=== PATIENT | female | born 1970 | race Caucasian/White ===

== ENCOUNTER → 2016-10-31 | Outpatient (CLI) | payer MEDICARE, MEDICAID ==
--- NOTE | 2016-10-31 09:45 | EKG REPORT ---
SEVERITY:- ABNORMAL ECG - SINUS RHYTHM NONSPECIFIC INTRAVENTRICULAR CONDUCTION DELAY : Confirmed by: Christine Warren 31-Oct-2016 09:45:07
== END ==
LOC: OD 08:36
PROVIDERS: ATTEND Student in an Organized Health Care Education/Training Program
DX: Z79.891 Long term (current) use of opiate analgesic (principal)
CPT/HCPCS: 93005; 93010

== ENCOUNTER 2016-11-20 02:35 | Emergency (ER) | payer MEDICARE, MEDICAID ==
--- NOTE | 2016-11-20 03:12 | ER Document Report ---
ED General - General Chief Complaint: Back Pain Stated Complaint: BACK PAIN Time Seen by Provider: 11/20/16 02:59 Notes: Patient is a 46-year-old female presents with complaint of pain in her back. She has a history of chronic back pain. She is to be on pain management but was recently weaned off her methadone. She says she is currently tween pain management doctors. She says that her pain started up again after she helped her family member move. She says since then she has had pain in both her lower and upper back. She says that she just feels weak all over and hurts into her extremities as well. No loss of bowel control. No urinary retention. She did go to [facility] yesterday was placed on prednisone. She says the prednisone is not helping. She is also on Cymbalta for pain. She also takes Neurontin for pain she also takes Phenergan as well as clonidine. She has no other complaints at this time. No recent fevers or illness. No travel outside the country. No recent flu vaccination. TRAVEL OUTSIDE OF THE [place] IN LAST 30 DAYS: No - Related Data Allergies/Adverse Reactions: Penicillins Adverse Reaction (Verified 11/20/16 02:37) pregabalin [From Lyrica] Adverse Reaction (Verified 11/20/16 02:37) Past Medical History - Social History Smoking Status: Unknown if Ever Smoked Frequency of alcohol use: None Drug Abuse: None Family History: Reviewed & Not Pertinent Patient has suicidal ideation: No Patient has homicidal ideation: No - Past Medical History Cardiac Medical History: Denies: Hx Coronary Artery Disease, Hx Heart Attack, Hx Hypertension Pulmonary Medical History: Denies: Hx Asthma, Hx Bronchitis, Hx COPD, Hx Pneumonia Neurological Medical History: Denies: Hx Cerebrovascular Accident, Hx Seizures Renal/ Medical History: Denies: Hx Peritoneal Dialysis Musculoskeltal Medical History: Denies Hx Arthritis - Immunizations Hx Diphtheria, Pertussis, Tetanus Vaccination: Yes Review of Systems - Review of Systems Notes: My Normal Review Basic REVIEW OF SYSTEMS: CONSTITUTIONAL : Denies fever, chills, or sweats. Denies recent illness. RESPIRATORY: Denies cough, cold, or chest congestion. Denies shortness of breath, difficulty breathing, or wheezing. GASTROINTESTINAL: Denies abdominal pain. Denies nausea, vomiting, or diarrhea. Denies constipation. Last BM: GENITOURINARY: Denies difficulty urinating, painful urination, burning, frequency, or blood in urine. MUSCULOSKELETAL: Back pain SKIN: Denies rash or skin lesions. NEUROLOGICAL: Denies altered mental status or loss of consciousness. Denies headache. Denies weakness or paralysis or loss of use of either side. Denies problems with gait or speech. Denies sensory or motor loss. ALL OTHER SYSTEMS REVIEWED AND NEGATIVE. Physical Exam - Vital signs Vitals: Temp Pulse Resp BP Pulse Ox 97.5 F 108 H 18 134/82 H 98 11/20/16 02:39 11/20/16 02:39 11/20/16 02:39 11/20/16 02:39 11/20/16 02:39 - Notes Notes: General Appearance: Well nourished, alert, cooperative, no acute distress, no obvious discomfort. Vitals: reviewed, See vital signs table. Eyes: PERRL, EOMI, Conjuctiva clear Neck: Supple, no neck tenderness, Back: Pain to palpation over thoracic and lumbar paraspinal musculature that is worse on the right. Extremities: strength 5/5 in all extremities, good pulses in all extremities, good strength with plantar and dorsal flexion of both feet against resistance. 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 She is able stand and bear weight without difficulty. No foot drop with ambulation. Skin: warm, dry, appropriate color, no rash Neuro: speech clear, oriented x 3, normal affect, responds appropriately to questions. Distal sensation intact. Course - Re-evaluation Re-evalutation: 11/20/16 07:06 Patient will be discharged home. She is already on max therapy for opiate withdrawal. Suspect that her back pain is worsening being that she was recently weaned off her methadone and also was recently doing heavy lifting. She has no new trauma to her back. She has no signs of central spinal cord impingement. On physical exam she has good strength in all 4 extremities despite her saying that she feels weak. I encourage her to follow-up closely with her primary care doctor. Encouraged to return to ER if she has loss of bowel control, urinary retention, foot drop, difficulty in bleeding, or increasing weakness in her extremities. Patient agrees with plan and will be discharged home. Dictation of this chart was performed using voice recognition software; therefore, there may be some unintended grammatical errors. - Vital Signs Vital signs: Temp Pulse Resp BP Pulse Ox 97.5 F 92 12 116/70 97 11/20/16 02:39 11/20/16 03:45 11/20/16 03:45 11/20/16 03:45 11/20/16 03:45 Discharge - Discharge Clinical Impression: Back pain Qualifiers: Back pain location: back pain in unspecified location Chronicity: chronic Back pain laterality: bilateral Qualified Code(s): M54.9 - Dorsalgia, unspecified Condition: Good Disposition: HOME, SELF-CARE Additional Instructions: Please follow up with your doctor for further pain management. Please continue to take the Phenergan, Clonidine, and Neurontin and your other prescribed medications. Please return to the ER immediately if you have worsening of your symptoms, loss of bowel control, urinary retention, or fevers. Referrals: ISAURO CAI MD [Primary Care Provider] - 11/21/16
[2016-11-20 06:11] VITALS: BP 116/70
== END 2016-11-20 03:37 | disposition home or self-care (01) ==
LOC: ER 02:35
DX: M54.9 Dorsalgia, unspecified (principal); G89.29 Other chronic pain; Z88.0 Allergy status to penicillin
CPT/HCPCS: 99283

== ENCOUNTER 2017-01-17 06:52 | Day surgery (SDC) | payer MEDICARE, MEDICAID ==
[2017-01-10 09:26] LABS: ABSOLUTE BASOPHILS # (AUTO) 0.1 10^3/uL (0.0-0.2); ABSOLUTE EOSINOPHILS # (AUTO) 0.2 10^3/uL (0.0-0.6); ABSOLUTE LYMPHOCYTES (AUTO) 3.7 10^3/uL (0.5-4.7); ABSOLUTE MONOCYTES (AUTO) 0.6 10^3/uL (0.1-1.4); ABSOLUTE NEUT (AUTO) 7.5 10^3/uL (1.7-8.2); BASOPHILS % (AUTO) 0.5 % (0-2); EOSINOPHILS % (AUTO) 1.4 % (0-6); HEMATOCRIT 40.6 % (36.0-47.0); HEMOGLOBIN 14.3 g/dL (12.0-15.5); HGB HCT DIFFERENCE 2.3; LYMPHOCYTES % (AUTO) 30.9 % (13-45); MEAN CORPUSCULAR HEMOGLOBIN 31.5 pg (27.0-33.4); MEAN CORPUSCULAR HGB CONC 35.3 g/dL (32.0-36.0); MEAN CORPUSCULAR VOLUME 89 fl (80-97); MONOCYTES % (AUTO) 5.2 % (3-13); RED BLOOD COUNT 4.55 10^6/uL (3.72-5.28); RED CELL DISTRIBUTION WIDTH 15.1 % (11.5-14.0); WHITE BLOOD COUNT 12.1 10^3/uL (4.0-10.5)
[2017-01-10 09:30] LABS: APPEARANCE,URINE CLEAR; BILIRUBIN,URINE NEGATIVE (NEGATIVE); GLUCOSE, URINE NEGATIVE (NEGATIVE); KETONES,URINE NEGATIVE (NEGATIVE); LEUKOCYTE ESTERASE,URINE NEGATIVE (NEGATIVE); NITRITE,URINE NEGATIVE (NEGATIVE); PROTEIN,URINE NEGATIVE (NEGATIVE); URINE SPECIFIC GRAVITY 1.005; UROBILINOGEN,URINE NEGATIVE mg/dL (<2.0)
[2017-01-10 09:55] LABS: ANION GAP 18 (5-19); BLOOD UREA NITROGEN 11 mg/dL (7-20); CALCIUM 10.9 mg/dL (8.4-10.2); CARBON DIOXIDE 30 mmol/L (22-30); CHLORIDE 96 mmol/L (98-107); CREATININE RESULT 0.59 mg/dL (0.52-1.25); GLUCOSE 154 mg/dL (75-110); POTASSIUM 4.3 mmol/L (3.6-5.0); SODIUM 143.7 mmol/L (137-145)
--- NOTE | 2017-01-10 10:41 | RADIOLOGY REPORT (SQ) ---
EXAM DESCRIPTION: CHEST PA/LATERAL COMPLETED DATE/TIME: 01/10/2017 9:58 am REASON FOR STUDY: PRE-OP COMPARISON: 08/20/2013 two-view chest EXAM PARAMETERS: NUMBER OF VIEWS: two views TECHNIQUE: Digital Frontal and Lateral radiographic views of the chest acquired. RADIATION DOSE: NA LIMITATIONS: none FINDINGS: LUNGS AND PLEURA: No opacities, masses or pneumothorax. No pleural effusion. MEDIASTINUM AND HILAR STRUCTURES: No masses or contour abnormalities. HEART AND VASCULAR STRUCTURES: Heart normal size. No evidence for failure. BONES: No acute findings. HARDWARE: None in the chest. OTHER: No other significant finding. IMPRESSION: NO SIGNIFICANT RADIOGRAPHIC FINDING IN THE CHEST. TECHNICAL DOCUMENTATION: JOB ID: [id number] [employer]- All Rights Reserved
--- NOTE | 2017-01-10 13:22 | EKG REPORT ---
SEVERITY:- ABNORMAL ECG - SINUS RHYTHM NONSPECIFIC INTRAVENTRICULAR CONDUCTION DELAY : Confirmed by: Pooja Elias MD 10-Jan-2017 13:22:04
[~2017-01-17 06:52] MED LIST: CLINDAMYCIN 600 MG/D5W RTU 600 MG/50 ML RTUPB IV PRN
[2017-01-17] MEDS ORDERED: BUPIVACAINE HCL 0.5 % INJ/PF 30 ML SDV ONE ×2 (07:39→09:33)
[2017-01-17 08:37] LABS: POTASSIUM 4.4 mmol/L (3.6-5.0)
[2017-01-17] MEDS ORDERED: DEXAMETHASONE SOD PHOSPHATE INJ 4 MG/1 ML VIAL ONE (08:58)
[2017-01-17] MEDS ORDERED: MIDAZOLAM 2 MG/2 ML INJ ONE (08:58)
[2017-01-17] MEDS ORDERED: ONDANSETRON HCL INJ/PF 4 MG/2 ML SDV ONE (08:58)
[2017-01-17] MEDS ORDERED: LIDOCAINE 2% INJ-PF (20 MG/ML) 10 ML AMPUL ONE (08:58)
[2017-01-17] MEDS ORDERED: FENTANYL CITRATE INJ/PF 250 MCG/5 ML AMPULE ONE (08:58)
[2017-01-17] MEDS ORDERED: PROPOFOL INJ 200 MG/20 ML VIAL IV ONE (08:59)
[2017-01-17] MEDS ORDERED: ACETAMINOPHEN 100 ML IV ONE (08:59)
[2017-01-17] MEDS ORDERED: MORPHINE SULFATE 10 MG/ML INJ IV PRN (09:53)
[2017-01-17] MEDS ORDERED: OXYCODONE-ACETAMINOPHEN 5-325 MG TABLET PO PRN ×3 (09:53→10:52)
[2017-01-17] MEDS ORDERED: FENTANYL CITRATE INJ/PF 100 MCG/2 ML AMPUL IV PRN ×3 (09:53)
[2017-01-17] MEDS ORDERED: PROMETHAZINE HCL INJ 25 MG/1 ML VIAL IV PRN ×2 (09:53)
[2017-01-17] MEDS ORDERED: ONDANSETRON HCL INJ/PF 4 MG/2 ML SDV IV PRN ×2 (09:53→10:52)
[2017-01-17] MEDS ORDERED: DIPHENHYDRAMINE HCL 50 MG/ML VIAL IV PRN (09:53)
[2017-01-17] MEDS ORDERED: MEPERIDINE HCL/PF INJ 25 MG/1 ML DISP.SYRIN IV PRN (09:53)
--- NOTE | 2017-01-17 10:45 | PDOC DISCHARGE SUMMARY ---
Discharge Summary (SDC) - Discharge Final Diagnosis: RIGHT cubital tunnel syndrome Date of Surgery: 01/17/17 Discharge Date: 01/17/17 Condition: Good Treatment or Instructions: Schedule Follow Up w/ Dr. Nicolas King @ [facility] to be seen in 10-14 days or as scheduled [place]: [place]: [place]: Ice and elevate Keep splint clean/dry/intact. If your fingers become numb please unwrap the Miguel Ángel wrap but leave the splint in place, if the sensation does not return within 30 minutes please return to the emergency department. May begin finger range of motion attempting to make full fist. Please use ibuprofen (Motrin or Advil) 600-800 mg every 8 hours as needed for pain or fever. You may also use acetaminophen (Tylenol) 1000 mg every 4-6 hours as needed for pain or fever. Please be aware that many medications contain acetaminophen, do not exceed a total of 1000 mg of acetaminophen every 6 hours. If ibuprofen and acetaminophen are not sufficient for your pain you may take the Percocet. Please be aware that the Percocet does contain Tylenol. Stool softener of choice when on pain medication. Prescriptions: Oxycodone HCl/Acetaminophen [Percocet 7.5-325 mg Tablet] 1 - 2 tab PO ASDIR PRN #45 tab PRN Reason: Referrals: ISAURO CAI MD [Primary Care Provider] - Discharge Diet: As Tolerated Respiratory Treatments at Home: Deep Breathing/Coughing, Incentive Spirometer Discharge Activity: No Lifting Over 10 Pounds, No Lifting/Push/Pulling Report the Following to Your Physician Immediately: Fever over 101 Degrees, Unusual Bleeding, Redness, Swelling, Warmth, Increased Soreness
--- NOTE | 2017-01-17 10:51 | Operative Report ---
Operative Report DATE OF SURGERY: 01/17/17 PREOPERATIVE DIAGNOSIS: Right cubital tunnel syndrome POSTOPERATIVE DIAGNOSIS: Same OPERATION: Right cubital tunnel release with ulnar nerve transposition SURGEON: ROXANA MURILLO ANESTHESIA: GA COMPLICATIONS: None ESTIMATED BLOOD LOSS: Minimal PROCEDURE: Indication for above procedure: 46-year-old female presents my office with numbness and tingling in her right upper extremity with notable weakness throughout the ulnar nerve distribution including clawing. On examination patient had findings of severe cubital tunnel syndrome. At that point we discussed treatment options including operative versus nonoperative intervention and prognosis for nerve recovery. After discussing these risks and benefits the joint decision was made to proceed with operative treatment. Procedure In Detail: Patient was seen and evaluated in the preoperative holding area. The RIGHT upper extremity was initialized and marked. Patient received 2g of Ancef IV for bacterial prophylaxis. Patient was taken back to the operative room where transferred to the operative table and placed under general anesthesia. Once they were adequately anesthetized and a nonsterile tourniquet was placed on the upper extremity. A surgical team debriefing was performed ensuring all instrumentation was available, the surgical procedure was discussed with possible concerns reviewed. The upper extremity was prepped with chlorhexidine and alcohol and draped in a sterile fashion. A timeout was done identifying correct patient, procedure and extremity everyone in attendance agree with this and verbalized no concerns. The extremity was exsanguinated the tourniquet was inflated to 250 mmHg. A longitudinal skin incision was made centered over the cubital tunnel. Careful dissection was done through the overlying soft tissues any peripheral vasculature was carefully coagulated with bipolar cautery. The branches of the medial antebrachial cutaneous nerve were identified and protected throughout the entirety of the case. Once within the confines of the cubital tunnel the ulnar nerve was identified at the proximal aspect of the wound. At this level I carefully released a medial portion of the triceps and the medial intermuscular septum freeing the ulnar nerve proximally of any overlying soft tissue compression. I then continued to track the ulnar nerve distally releasing Ann's fascia. Within the cubital tunnel there is a small and anconeus epitrochlearis muscle which was excised. At the level of the FCU aponeurosis between the 2 heads of the FCU muscle. The fascia was released once again relieving any external compression from the ulnar nerve distally past the level of the first motor branch. I then freed up the nerve posteriorly ensuring there is no remaining soft tissue bands causing compression. During dissection of the nerve careful attention was directed at avoiding disruption of the ulnar nerve blood supply. Elbow range of motion was then done from full flexion to full extension with full flexion there was evidence of anterior subluxation of the ulnar nerve from the groove. And thus I determined patient would require anterior subcutaneous ulnar nerve transposition To perform the transposition skin incision was extended proximally and distally the nerve was further freed from overlying soft tissue distally within the FCU muscle bellies and proximally along the medial intermuscular septum. A section of the medial intermuscular septum was removed to avoid proximal compression or kinking of the nerve after transposition. A vessel loop was placed around the nerve and its posterior vasculature both of which were carefully transposed anteriorly. At this point I checked the nerve proximally and distally to confirm there was no compression with range of motion from full flexion to full extension. Once I ensured no compression of the nerve I carefully dissected the subcutaneous tissues anteriorly taking note to avoid any branches of the medial antebrachial cutaneous nerve. A small subcutaneous flap of adipose tissue this was carefully secured to the medial epicondyle with a 3-0 Vicryl suture while a [place] was placed at the level of the ulnar nerve to ensure no external compression from my subcutaneous flap. Once this was complete I once again flexed and extended the elbow ensuring no proximal or distal compression of the ulnar nerve. The tourniquet was then deflated. Compression was made to the wound for 2 minutes. I then identified any peripheral bleeding and carefully coagulated with bipolar cautery. The wound was then irrigated with normal saline. Subcutaneous tissues were closed with interrupted 3-0 Monocryl. Skin was closed a running subcuticular 4-0 Monocryl reinforced with Dermabond and Steri- Strips. Wounds dressed with 4 x 4's, soft roll and a posterior splint with the elbow at 70. Sponge counts, instrument counts, needle counts counts were correct. Patient was then awoken from anesthesia. Transferred from the operating room table to the operating room stretcher. There was no intraoperative complications patient tolerated procedure well stable to PACU. Postoperative plan: Patient will follow-up in the office as scheduled which point we will proceed with wound check. She may begin gentle range of motion exercises but avoid any heavy lifting at her first postoperative appointment.
[2017-01-17] MEDS ORDERED: HYDROMORPHONE HCL INJ/PF 2 MG/ML AMPULE IV PRN (10:52)
[2017-01-17] MEDS: FENTANYL CITRATE INJ/PF 100 MCG/2 ML AMPUL ONE ×2 (11:12→11:17)
[2017-01-17] MEDS ORDERED: KETOROLAC TROMETHAMINE INJ/PF 30 MG/1 ML SDV ONE (11:32)
[2017-01-17] MEDS ORDERED: SUCCINYLCHOLINE CHLORIDE INJ 200 MG/10 ML VIAL ONE (11:59)
[2017-01-17 13:33] VITALS: BP 104/69
== END 2017-01-17 13:20 | disposition home or self-care (01) ==
LOC: OROUT 06:52
PROVIDERS: ATTEND Orthopaedic Surgery
PROC: 01N40ZZ Release Ulnar Nerve, Open Approach (ICD-10-PCS; principal; 2017-01-17 09:00)
DX: G56.21 Lesion of ulnar nerve, right upper limb (principal); M19.90 Unspecified osteoarthritis, unspecified site; E11.9 Type 2 diabetes mellitus without complications; I10 Essential (primary) hypertension; E78.5 Hyperlipidemia, unspecified; I05.9 Rheumatic mitral valve disease, unspecified; Z88.0 Allergy status to penicillin; Z88.8 Allergy status to other drugs, medicaments and biological substances; Z79.899 Other long term (current) drug therapy; Z88.5 Allergy status to narcotic agent; Z79.84 Long term (current) use of oral hypoglycemic drugs
CPT/HCPCS: 93005; 36415 ×2; 82947; 84132; 84703; 85025; 80048; 81001; 83036; 71020; 93010; 64718; J2250; J1100; J3010 ×2; J1885; A9270; J0330; J2405; J2704; J3490; J0131; 1810

== ENCOUNTER → 2017-08-03 | Outpatient (CLI) | payer MEDICARE, MEDICAID ==
--- NOTE | 2017-08-03 14:33 | RADIOLOGY REPORT (SQ) ---
EXAM DESCRIPTION: MRI HEAD COMBO COMPLETED DATE/TIME: 08/03/2017 12:33 pm REASON FOR STUDY: SYNCOPE/SEIZURE R55 SYNCOPE AND COLLAPSE COMPARISON: None. TECHNIQUE: Multiplanar imaging includes noncontrasted T1, T2, FLAIR, diffusion with ADC map and post gadolinium contrast T1 sequences. Images stored on PACS. CONTRAST TYPE AND DOSE: 10 mL Multihance. RENAL FUNCTION: GFR > 60. LIMITATIONS: None. FINDINGS: ANATOMY: No anomalies. Normal vascular flow voids. Pituitary fossa normal. CSF SPACES: Normal in size and contour. No hemorrhage. CEREBRUM: Sulci and gyri normal in size and contour. Normal white matter signal on FLAIR imaging. No evidence of hemorrhage, mass, or extraaxial fluid collection. No abnormal enhancement post contrast. POSTERIOR FOSSA: No signal alteration. No hemorrhage. No edema, masses, or mass effect. Internal jared tory canals, cerebellopontine angles, mastoids normal. No enhancing lesions. No abnormal enhancement post contrast. DIFFUSION IMAGING: Negative for acute or subacute infarction. ORBITS: No masses. Globes normal. PARANASAL SINUSES: No fluid levels. Mucosa normal. OTHER: No other significant finding. IMPRESSION: NORMAL MRI OF THE BRAIN WITHOUT AND WITH INTRAVENOUS GADOLINIUM CONTRAST. EVIDENCE OF ACUTE STROKE: NO. TECHNICAL DOCUMENTATION: JOB ID: [id number] [employer]- All Rights Reserved Reading location - IP/workstation name: [email or web address]
== END ==
LOC: RAD 11:43
PROVIDERS: ATTEND Physician Assistant
DX: R55 Syncope and collapse (principal)
CPT/HCPCS: 82565; 70553; A9577

== ENCOUNTER → 2017-08-07 | Outpatient (CLI) | payer MEDICARE, MEDICAID ==
--- NOTE | 2017-08-07 12:37 | RADIOLOGY REPORT (SQ) ---
EXAM DESCRIPTION: CAROTID DOPPLER COMPLETED DATE/TIME: 08/07/2017 11:21 am REASON FOR STUDY: SYNCOPE R55 SYNCOPE AND COLLAPSE COMPARISON: MRI brain 08/03/2017 TECHNIQUE: Grayscale ultrasound, Doppler velocity and spectra, and color Doppler images acquired of the extra-cranial carotid and vertebral arteries. Images stored on PACS. LIMITATIONS: None. FINDINGS: RIGHT CAROTID CCA Velocities: Within normal limits. ICA Velocities Peak systolic 0.88 m/s. End diastolic 0.33 m/s. Proximal ICA/CCA peak systolic ratio 0.9. Spectra normal. No significant plaque. LEFT CAROTID CCA Velocities: Within normal limits. ICA Velocities Peak systolic 1.0 m/s. End diastolic 0.34 m/s. Proximal ICA/CCA peak systolic ratio 1.2. Spectra normal. Minimal calcific shadowing plaque. VERTEBRAL ARTERIES: Antegrade flow. Normal waveforms. SUBCLAVIAN ARTERIES: Not evaluated OTHER: No other significant finding. IMPRESSION: NO HEMODYNAMICALLY SIGNIFICANT STENOSIS. COMMENT: Quality ID #[id number]: Velocity criteria are extrapolated from the diameter data as defined by t he Society of Radiologists in Ultrasound Consensus Conference. Radiology 2003: 229; 340-346. TECHNICAL DOCUMENTATION: JOB ID: [id number] [employer]- All Rights Reserved Reading location - IP/workstation name: [email or web address]
--- NOTE | 2017-08-07 12:47 | XCELERA REPORT ---
[address] [address] Transthoracic Echocardiogram Report Name: MONY CRUZ Age: 46 yrs Gender: Female : 1970 Patient Status: Outpatient Patient Location: Study Date: 08/07/2017 10:40 AM Height: 69 in Weight: 140 lb BSA: 1.8 m2 Procedure: A complete two-dimensional transthoracic echocardiogram was performed (2D, M-mode, spectral and color flow Doppler). The study was technically adequate with some images being suboptimal in quality. Reason For Study: SYNCOPE Ordering Physician: JOSEPH CABELLO PA-C Performed By: Mary Gonsales Interpretation Summary mildly The left ventricular ejection fraction is normal. There is borderline concentric left ventricular hypertrophy. Doppler measurements suggest normal left ventricular diastolic function The left ventricle is grossly normal size. Wall motion cannot be accurately commented on, but no definite regional wall motion abnormalities noted. The right ventricle is not well visualized secondary to technical limitations. RV possibly enlarged. Right ventricular function cannot be assessed due to poor image quality. The left atrial size is normal. There is a trace to mild amount of mitral regurgitation There is no mitral valve stenosis. There is no aortic valve stenosis No aortic regurgitation is present. There is no tricuspid stenosis. No tricuspid regurgitation. The aortic root is not well visualized but is probably normal size. The inferior vena cava appeared normal and decreased < 50% with respiration (RAP 10-15 mmHg) There is no pericardial effusion. MMode/2D Measurements & Calculations RVDd: 2.2 cm LVIDd: 4.4 cm FS: 34.6 % Ao root diam: 2.7 cm IVSd: 0.79 cm LVIDs: 2.8 cm EDV(Teich): 85.4 ml LVPWd: 0.84 cmESV(Teich): 30.7 ml Ao root area: 5.8 cm2 EF(Teich): 64.0 % LVOT diam: 1.9 cm LVOT area: 2.9 cm2 Doppler Measurements & Calculations MV E max annie: MV dec slope: Ao V2 max: LV V1 max P.6 cm/sec 519.2 cm/sec2 124.7 cm/sec 3.3 mmHg MV A max annie: MV dec time: Ao max PG: LV V1 max: 83.5 cm/sec 0.20 sec 6.2 mmHg 90.4 cm/sec MV E/A: 1.2 JANINE(V,D): 2.1 cm2 PA V2 max: 57.3 cm/sec PA max P.3 mmHg Left Ventricle The left ventricle is grossly normal size. There is borderline concentric left ventricular hypertrophy. The left ventricular ejection fraction is normal. Doppler measurements suggest normal left ventricular diastolic function. Wall motion cannot be accurately commented on, but no definite regional wall motion abnormalities noted. Right Ventricle The right ventricle is not well visualized secondary to technical limitations. Right ventricular function cannot be assessed due to poor image quality. Atria Right atrium not well visualized secondary to technical limitations. The left atrial size is normal. Interarterial septum not well visualized and not well dopplered. Cannot comment on ASD/PFO presence. Mitral Valve The mitral valve is grossly normal. There is no mitral valve stenosis. There is a trace to mild amount of mitral regurgitation. Aortic Valve The aortic valve is grossly normal. There is no aortic valve stenosis. No aortic regurgitation is present. Tricuspid Valve The tricuspid valve is not well visualized, but is grossly normal. There is no tricuspid stenosis. No tricuspid regurgitation. Pulmonic Valve The pulmonic valve is not well visualized. Great Vessels The aortic root is not well visualized but is probably normal size. The inferior vena cava appeared normal and decreased < 50% with respiration (RAP 10-15 mmHg). Effusions There is no pericardial effusion. : JOSEPH CABELLO PA-C > Christine Warren
== END ==
LOC: SP 09:46
PROVIDERS: ATTEND Physician Assistant
DX: R55 Syncope and collapse (principal)
CPT/HCPCS: 93306; 93880

== ENCOUNTER 2018-01-06 00:04 | Observation (INO) | payer MEDICARE, MEDICAID ==
[2018-01-06] MEDS ORDERED: FENTANYL CITRATE INJ/PF 100 MCG/2 ML AMPUL IV ONE ×2 (00:44→04:21)
[2018-01-06 00:50] LABS: ABSOLUTE EOSINOPHILS # (AUTO) 0.1 10^3/uL (0.0-0.6); ABSOLUTE LYMPHOCYTES (AUTO) 3.4 10^3/uL (0.5-4.7); ABSOLUTE MONOCYTES (AUTO) 0.6 10^3/uL (0.1-1.4); ABSOLUTE NEUT (AUTO) 4.6 10^3/uL (1.7-8.2); BASOPHILS % (AUTO) 0.4 % (0-2); EOSINOPHILS % (AUTO) 0.6 % (0-6); HEMATOCRIT 35.5 % (36.0-47.0); HEMOGLOBIN 12.4 g/dL (12.0-15.5); LYMPHOCYTES % (AUTO) 38.9 % (13-45); MEAN CORPUSCULAR HEMOGLOBIN 31.8 pg (27.0-33.4); MEAN CORPUSCULAR HGB CONC 34.9 g/dL (32.0-36.0); MEAN CORPUSCULAR VOLUME 91 fl (80-97); MONOCYTES % (AUTO) 6.8 % (3-13); PLATELET COUNT 328 10^3/uL (150-450); RED BLOOD COUNT 3.91 10^6/uL (3.72-5.28); RED CELL DISTRIBUTION WIDTH 13.2 % (11.5-14.0); SEGMENTED NEUTROPHILS % (AUTO) 53.3 % (42-78); TOTAL CELLS COUNTED % (AUTO) 100 %; WHITE BLOOD COUNT 8.6 10^3/uL (4.0-10.5)
[2018-01-06 01:29] LABS: ALANINE AMINOTRANSFERASE 35 U/L (9-52); ALBUMIN 4.2 g/dL (3.5-5.0); ALKALINE PHOSPHATASE 66 U/L (38-126); ANION GAP 8 (5-19); ASPARTATE AMINO TRANSFERASE 19 U/L (14-36); BILIRUBIN,DIRECT 0.3 mg/dL (0.0-0.4); BILIRUBIN,TOTAL 0.6 mg/dL (0.2-1.3); BLOOD UREA NITROGEN 11 mg/dL (7-20); CARBON DIOXIDE 27 mmol/L (22-30); CHLORIDE 98 mmol/L (98-107); CREATINE KINASE 76 U/L (30-135); GLUCOSE 104 mg/dL (75-110); POTASSIUM 4.4 mmol/L (3.6-5.0); SODIUM 133.1 mmol/L (137-145); TOTAL PROTEIN 6.9 g/dL (6.3-8.2)
--- NOTE | 2018-01-06 01:43 | RADIOLOGY REPORT (SQ) ---
EXAM DESCRIPTION: XR CHEST 1 VIEW COMPLETED DATE/TME: 01/06/2018 00:43 CLINICAL HISTORY: 47 years Female, syncope COMPARISON: None. NUMBER OF VIEWS/TECHNIQUE: 1/AP FINDINGS: Increased lung volume, clear parenchyma, normal cardiac silhouette, and intact bony thorax. IMPRESSION: No acute cardiopulmonary findings.
[2018-01-06 01:48] LABS: CREATINE KINASE MB 0.95 ng/mL (<4.55)
--- NOTE | 2018-01-06 01:49 | RADIOLOGY REPORT (SQ) ---
EXAM DESCRIPTION: CT HEAD WITHOUT IV CONTRAST COMPLETED DATE/TME: 01/06/2018 00:42 CLINICAL HISTORY: trauma and fall. Pain. COMPARISON: 08/03/2017 TECHNIQUE: Axial CT of the head obtained from the skull apex to the skull base without contrast. FINDINGS: No acute intracranial hemorrhage identified. No mass, mass effect, shift of the midline, abnormal extra-axial fluid collection or CT evidence of acute ischemic change identified. The ventricular system is unremarkable. No acute abnormalities of the supratentorial white matter, basal ganglia, cerebellum, or brainstem. The visualized paranasal sinuses and the mastoids are clear. No skull fracture identified. Visualized orbits and globes are unremarkable. Contusion in the right frontal subcutaneous soft tissues. DLP: 1150.19 mGy-cm IMPRESSION: 1. No acute intracranial abnormality identified. This exam was performed according to our departmental dose-optimization program, which includes automated exposure control, adjustment of the mA and/or kV according to patient size and/or use of iterative reconstruction technique.
[2018-01-06 01:50] LABS: TROPONIN I < 0.012 ng/mL
--- NOTE | 2018-01-06 02:03 | RADIOLOGY REPORT (SQ) ---
EXAM DESCRIPTION: CT CERVICAL SPINE WITHOUT IV CONTRAST COMPLETED DATE/TME: 01/06/2018 00:42 CLINICAL HISTORY: trauma, fall pain. COMPARISON: None available TECHNIQUE: Axial CT of the cervical spine obtained without contrast. FINDINGS: Straightening of the cervical lordosis is likely secondary to patient positioning. The atlantoaxial, atlantodental, and occipitoatlantal intervals are preserved. No fracture identified. Vertebral body height preserved. Prevertebral soft tissues are unremarkable. Mild endplate spondylosis. Intervertebral disc height preserved. No central canal nor osseous neural foraminal narrowing. Visualized skull base is intact. No fracture of the visualized facial bones. Visualized mastoid air cells and paranasal sinuses are well aerated. Visualized thyroid is unremarkable. No cervical lymphadenopathy. No pneumothorax in the visualized lung apices. Atherosclerotic calcification of the carotid arteries. DLP: 257.05 mGy-cm IMPRESSION: 1. No acute fracture or subluxation of the cervical spine. This exam was performed according to our departmental dose-optimization program, which includes automated exposure control, adjustment of the mA and/or kV according to patient size and/or use of iterative reconstruction technique.
--- NOTE | 2018-01-06 02:03 | ER Document Report ---
ED Dizziness/Weakness - General Chief Complaint: Syncope Stated Complaint: SYNCOPE Time Seen by Provider: 01/06/18 00:31 Mode of Arrival: Medic Information source: Patient TRAVEL OUTSIDE OF THE [place] IN LAST 30 DAYS: No - HPI Patient complains to provider of: Other - 47-year-old female presents for evaluation of a syncopal episode today at home, she notes that she has had recurrent syncope over the last several months it has been evaluated by a neurologist as well as a automatic buffer, she did have an episode in which she underwent monitoring for possible seizures through her neurologist, nothing was identified as being seizure activity, she did then see a automatic buffer who did an EKG and said that she was fine. She notes that when she does pass out she loses entire consciousness, tonight she had gotten up to go to the kitchen at which time she passed out and hit her head on both the wall and the floor. When she came to she did call for help. She denies any recent illnesses fevers chills rashes shortness of breath chest pain or other symptoms, denies any preceding palpitations or prodrome. - Related Data Allergies/Adverse Reactions: Penicillins Allergy (Severe, Verified 01/10/17 08:23) pregabalin [From Lyrica] Allergy (Severe, Verified 01/10/17 08:23) welts, edema Past Medical History - General Information source: Patient - Social History Smoking Status: Current Every Day Smoker Frequency of alcohol use: None Drug Abuse: None Family History: Reviewed & Not Pertinent Patient has suicidal ideation: No Patient has homicidal ideation: No - Past Medical History Cardiac Medical History: Reports: Hx Hypercholesterolemia, Hx Hypertension Denies: Hx Coronary Artery Disease, Hx Heart Attack Pulmonary Medical History: Denies: Hx Asthma, Hx Bronchitis, Hx COPD, Hx Pneumonia Neurological Medical History: Denies: Hx Cerebrovascular Accident, Hx Seizures Renal/ Medical History: Denies: Hx Peritoneal Dialysis Musculoskeletal Medical History: Denies Hx Arthritis Psychiatric Medical History: Reports: Hx Bipolar Disorder Past Surgical History: Reports: Hx Orthopedic Surgery - Internal/external fusion of lower back - Immunizations Hx Diphtheria, Pertussis, Tetanus Vaccination: Yes Review of Systems - Review of Systems -: Yes All other systems reviewed and negative Physical Exam - Vital signs Vitals: Resp BP Pulse Ox 17 106/79 98 01/06/18 00:09 01/06/18 00:09 01/06/18 00:09 - General General appearance: Appears well In distress: None - HEENT Head: Other - Large hematoma over the right forehead Eyes: Normal Conjunctiva: Normal Cornea: Normal Extraocular movements intact: Yes Eyelashes: Normal Pupils: PERRL - Respiratory Respiratory status: No respiratory distress Chest status: Nontender Breath sounds: Normal Chest palpation: Normal - Cardiovascular Rhythm: Regular Heart sounds: Normal auscultation Murmur: No - Abdominal Inspection: Normal Distension: No distension Tenderness: Nontender - Back Back: Normal - Extremities General upper extremity: Normal inspection, Nontender, Normal ROM, Normal strength General lower extremity: Normal inspection, Nontender, Normal ROM, Normal strength - Neurological Neuro grossly intact: Yes Cognition: Normal Orientation: AAOx4 [place] Coma Scale Eye Opening: Spontaneous [place] Coma Scale Verbal: Oriented [place] Coma Scale Motor: Obeys Commands [place] Coma Scale Total: 15 Speech: Normal Cranial nerves: Normal Motor strength normal: LUE, RUE, LLE, RLE - Psychological Associated symptoms: Normal affect Course - Re-evaluation Re-evalutation: 01/06/18 06:32 This 47-year female presents for evaluate patient of syncope. On examination she has an obvious hematoma of the right forehead. She has had recurrent syncope in the past. We will initiate workup for possible underlying cause of syncope including EKG, troponin x2, cardiac monitoring CT of the head and cervical spine. We will administer fentanyl for headache. CT of the head does not demonstrate any obvious intracranial abnormality, cervical spine CT is also normal. Patient's blood pressure did dwindle briefly while in emergency department, she was given a liter of normal saline. Troponins were negative x2, patient was asymptomatic while on monitor in the emergency department because of her syncopal episode and the concern for possible underlying arrhythmia as an origin will plan for admission. Contacted on-call hospitalist Dr. Proctor who agrees for admission and monitoring of this patient on telemetry. - Vital Signs Vital signs: Temp Pulse Resp BP Pulse Ox 97.5 F 67 16 136/96 H 99 01/06/18 04:07 01/06/18 06:06 01/06/18 06:01 01/06/18 06:06 01/06/18 06:01 - Laboratory Result Diagrams: 01/06/18 00:30 01/06/18 01:00 Laboratory results interpreted by me: 01/06/18 01/06/18 00:30 01:00 Hct 35.5 L Sodium 133.1 L Discharge - Discharge Clinical Impression: Syncope and collapse Contusion Qualifiers: Encounter type: initial encounter Contusion area: head Contusion of head detail : scalp Qualified Code(s): S00.03XA - Contusion of scalp, initial encounter Headache Qualifiers: Headache type: unspecified Headache chronicity pattern: acute headache Intractability: not intractable Qualified Code(s): R51 - Headache Disposition: ADMITTED INPATIENT Admitting Provider: Hospitalist Unit Admitted: Telemetry
[2018-01-06] MEDS: NORMAL SALINE 1000 ML 1,000 ML IV PRN ×2 (02:11→03:08)
[2018-01-06] MEDS ORDERED: MAG HYDROX/AL HYDROX/SIMETH SUSP 30 ML UDCUP PO PRN (04:54)
[2018-01-06] MEDS: HEPARIN SOD (PORCINE) 5,000 UNIT/ML 1 ML SYRINGE SUBCUT SCH ×3 (05:58→21:09)
[2018-01-06 06:41] LABS: URINE AMPHETAMINES SCREEN NEGATIVE; URINE BARBITURATES SCREEN NEGATIVE; URINE BENZODIAZEPINES SCREEN NEGATIVE; URINE COCAINE SCREEN NEGATIVE; URINE MARIJUANA (THC) SCREEN UNCONFIRMED POSITIVE; URINE METHADONE SCREEN NEGATIVE; URINE PHENCYCLIDINE SCREEN NEGATIVE
--- NOTE | 2018-01-06 06:56 | PDOC H&P ---
History of Present Illness Admission Date/PCP: 01/06/18 05:14 ISAURO CAI MD Patient complains of: Passing out History of Present Illness: MONY CRUZ is a 47 year old female with a past medical history of chronic pain, depression, anxiety, substance and tobacco abuse. Patient presents after a fall with head strike to the wall resulting in 1 cm laceration to the right brow. This was preceded by complaints of dancing in her head and an empty feeling. She denied previous headache, palpitations, chest pain, shortness of breath nausea or vomiting. She has had several outpatient workups including ambulatory EEG which was -2 months ago. In the emergency room she is found to have a 1 cm laceration to the right brow, unchanged intraventricular conduction delay and odd affect. She denies recent change in medications or running out though also is at risk for polypharmacy Via Harje[facility] Colmenares Nunez, [facility]. Patient admits to several medications complicating her chief complaint in addition to regular marijuana use. Pharmacy reconciliation, database query and urine toxicology pending. Past Medical History Cardiac Medical History: Reports: Hyperlipidema, Hypertension Denies: Coronary Artery Disease, Myocardial Infarction Pulmonary Medical History: Denies: Asthma, Bronchitis, Chronic Obstructive Pulmonary Disease (COPD), Pneumonia Neurological Medical History: Denies: Seizures Musculoskeltal Medical History: Denies: Arthritis Psychiatric Medical History: Reports: Bipolar Disorder, General Anxiety Disorder , Substance Abuse, Tobacco Dependency Hematology: Denies: Anemia Past Surgical History Past Surgical History: Reports: Orthopedic Surgery - Internal/external fusion of lower back Social History Information Source: Patient, [facility] Records Smoking Status: Current Every Day Smoker Frequency of Alcohol Use: None Hx Recreational Drug Use: Yes Drugs: Marijuana - Advance Directive Resuscitation Status: Full Code Family History Family History: Hypertension Parental Family History Reviewed: Yes Children Family History Reviewed: Yes Sibling(s) Family History Reviewed.: Yes Medication/Allergy Home Medications: Alprazolam [Xanax Xr 1 mg Tablet Extended Release] 0.5 tab PO BID 07/05/13 Gabapentin [Neurontin 400 mg Capsule] 2 tab PO QID 07/05/13 Asenapine Maleate [Saphris] 1 tab PO QHS 01/10/17 Atorvastatin Calcium 1 tab PO DAILY 01/10/17 Duloxetine HCl [Cymbalta] 1 cap PO DAILY 01/10/17 Fenofibrate Nanocrystallized [Fenofibrate] 1 tab PO DAILY 01/10/17 Furosemide [Lasix 20 mg Tablet] 1 tab PO DAILY 01/10/17 Lisinopril 1 tab PO DAILY 01/10/17 Metformin HCl [Glucophage Xr] 1 tab PO QPM 01/10/17 Oxcarbazepine [Trileptal] 1.5 tab PO BID 01/10/17 Potassium Chloride [K-Tab ER] 1 tab PO DAILY 01/10/17 Oxycodone HCl/Acetaminophen [Percocet 7.5-325 mg Tablet] 1 - 2 tab PO ASDIR PRN #45 tab 01/17/17 Allergies/Adverse Reactions: Penicillins Allergy (Severe, Verified 01/10/17 08:23) pregabalin [From Lyrica] Allergy (Severe, Verified 01/10/17 08:23) welts, edema Physical Exam Vital Signs: Temp Pulse Resp BP Pulse Ox 97.5 F 67 16 136/96 H 99 01/06/18 04:07 01/06/18 06:06 01/06/18 06:01 01/06/18 06:06 01/06/18 06:01 Results Impressions: Cervical Spine CT 01/06/18 00:42 IMPRESSION: 1. No acute fracture or subluxation of the cervical spine. This exam was performed according to our departmental dose-optimization program, which includes automated exposure control, adjustment of the mA and/or kV according to patient size and/or use of iterative reconstruction technique. Head CT 01/06/18 00:42 IMPRESSION: 1. No acute intracranial abnormality identified. This exam was performed according to our departmental dose-optimization program, which includes automated exposure control, adjustment of the mA and/or kV according to patient size and/or use of iterative reconstruction technique. Chest X-Ray 01/06/18 00:43 IMPRESSION: No acute cardiopulmonary findings. Assessment & Plan - Diagnosis (1) Intraventricular conduction delay Is this a current diagnosis for this admission?: Yes Plan: Cardiology consult, recent negative echocardiogram, orthostatic blood pressures and ambulatory telemetry. (2) Polypharmacy Is this a current diagnosis for this admission?: Yes Plan: Follow-up urine drug screen, database query and outpatient pharmacy (3) Contusion Qualifiers: Encounter type: initial encounter Contusion area: head Contusion of head detail: scalp Qualified Code(s): S00.03XA - Contusion of scalp, initial encounter Is this a current diagnosis for this admission?: Yes Plan: Nonnarcotic symptomatic management. Imaging unremarkable (4) Syncope and collapse Is this a current diagnosis for this admission?: Yes Plan: Please see #1 - Time Time Spent: 50 to 70 Minutes - Inpatient Certification Medical Necessity: Need Close Monitoring Due to Risk of Patient Decompensation
[2018-01-06] MEDS: ACETAMINOPHEN 325 MG TABLET PO PRN ×2 (09:07→16:36)
--- NOTE | 2018-01-06 09:33 | EKG REPORT ---
SEVERITY:- ABNORMAL ECG - SINUS RHYTHM NONSPECIFIC INTRAVENTRICULAR CONDUCTION DELAY BORDERLINE R WAVE PROGRESSION, ANTERIOR LEADS : Confirmed by: Pooja Elias MD 06-Jan-2018 09:32:43
[2018-01-06] MEDS ORDERED: IBUPROFEN 800 MG TABLET PO ONE (12:00)
[2018-01-06] MEDS ORDERED: ALPRAZOLAM 0.5 MG TABLET PO SCH (12:00)
[2018-01-06] MEDS: GABAPENTIN 400 MG CAPSULE PO SCH ×3 (12:07→23:53)
[2018-01-06] MEDS: OXCARBAZEPINE 150 MG TABLET PO SCH ×2 (12:07→21:04)
[2018-01-06] MEDS: DULOXETINE HCL 30 MG CAPSULE.DR PO SCH (12:07)
[2018-01-06] MEDS: ALPRAZOLAM 0.5 MG TABLET PO PRN ×2 (12:14→18:32)
--- NOTE | 2018-01-06 14:44 | Progress Note ---
Provider Note Provider Note: This 47-year-old woman was admitted to the hospital with recurrent syncope. She has multiple medical problems that she is treated for including anxiety, chronic pain, bipolar disorder. She also uses recreational marijuana frequently. Patient recently had a syncopal spell where she completely lost consciousness, precipitated by some lightheadedness, unclear as to whether or not she had vision changes related. She is admitted to the hospitalist, currently feeling better, the right forehead laceration is aching. She is relieved that her CT scan of her head and neck are both negative for acute problems. Admitting physician ordered cardiology consult and that is pending. On exam she is awake alert oriented no acute distress, mucous membranes moist, tongue midline, cranial nerves II through XII grossly intact. Regular rate rhythm without murmurs. Abdomen soft nontender nondistended normal bowel sounds. No lower extremity edema. Assessment and plan: Not entirely clear etiology of her syncope though her medication list along with recreational marijuana could indeed be causing these episodes. In order to rule out other reversible cause, We will continue telemetry, await cardiology consult to see if other workup is indicated, by chart review it appears that she recently had an echocardiogram. Carotid duplex is ordered. She has recently had ambulatory EEG also by chart review. For the right forehead laceration I am treating her with ibuprofen and Tylenol. Her home meds have been restarted including Cymbalta, gabapentin, alprazolam. Trops negative.
--- NOTE | 2018-01-06 16:35 | RADIOLOGY REPORT (SQ) ---
EXAM DESCRIPTION: CAROTID DOPPLER COMPLETED DATE/TIME: 01/06/2018 4:13 pm REASON FOR STUDY: recurrent dizziness and syncpe COMPARISON: None. TECHNIQUE: Grayscale ultrasound, Doppler velocity and spectra, and color Doppler images acquired of the extra-cranial carotid and vertebral arteries. Images stored on PACS. LIMITATIONS: None. FINDINGS: RIGHT CAROTID CCA Velocities: Within normal limits. ICA Velocities Peak systolic 104 m/s. End diastolic 42 m/s. Proximal ICA/CCA peak systolic ratio 1.4. Spectra normal. No significant plaque. LEFT CAROTID CCA Velocities: Within normal limits. ICA Velocities Peak systolic 103 m/s. End diastolic 52 m/s. Proximal ICA/CCA peak systolic ratio 1.3. Spectra normal. No significant plaque. VERTEBRAL ARTERIES: Antegrade flow. Normal waveforms. SUBCLAVIAN ARTERIES: No finding. OTHER: No other significant finding. IMPRESSION: NO HEMODYNAMICALLY SIGNIFICANT STENOSIS. COMMENT: Quality ID #[id number]: Velocity criteria are extrapolated from the diameter data as defined by t he Society of Radiologists in Ultrasound Consensus Conference. Radiology 2003: 229; 340-346. TECHNICAL DOCUMENTATION: JOB ID: [id number] [place]-72 2010 [employer]- All Rights Reserved Reading location - IP/workstation name: [employer]
--- NOTE | 2018-01-06 19:57 | PDOC CONSULTATION ---
Consultation Consult Date: 01/06/18 Attending physician:: YASIR EVANS Consult reason:: Syncope History of Present Illness Admission Date/PCP: 01/06/18 05:14 ISAURO CAI MD Patient complains of: Syncope History of Present Illness: MONY CRUZ is a 47 year old female with a past medical history of chronic pain, depression, anxiety, substance and tobacco abuse. Patient presents after a fall with head strike to the wall resulting in 1 cm laceration to the right brow. This was preceded by complaints of dancing of her brain in her head and an empty feeling. She denied previous headache, palpitations, chest pain, shortness of breath nausea or vomiting. She has had several outpatient workups including ambulatory EEG which was -2 months ago. In the emergency room she is found to have a 1 cm laceration to the right brow, unchanged intraventricular conduction delay and odd affect. She denies recent change in medications or running out though also is at risk for polypharmacy Via Harje[facility] Colmenares Nunez, [facility]. Patient admits to several medications complicating her chief complaint in addition to regular marijuana use. Pharmacy reconciliation, database query and urine toxicology pending. This history obtained by the hospitalist was reviewed and confirmed. Patient did have orthostatic blood pressure obtained this morning which was noted to be negative. Patient describes that she has syncopal spell, preceded by symptoms described above about once every 2 weeks in frequency. No real tonic-clonic movements are noted. Patient claims that she looks very pale during these episodes. Following episode she is very fatigued and tired. Patient denied any sleep evaluation but had ambulatory EEG. Patient denied any cardiac monitoring for prolonged. A 2D echo has been ordered and is pending at the time of dictation. Past Medical History Cardiac Medical History: Reports: Hyperlipidema, Hypertension Denies: Coronary Artery Disease, Myocardial Infarction Pulmonary Medical History: Denies: Asthma, Bronchitis, Chronic Obstructive Pulmonary Disease (COPD), Pneumonia Neurological Medical History: Denies: Seizures Musculoskeltal Medical History: Denies: Arthritis Psychiatric Medical History: Reports: Bipolar Disorder, Depression, General Anxiety Disorder, Substance Abuse, Tobacco Dependency Hematology: Denies: Anemia Past Surgical History Past Surgical History: Reports: Orthopedic Surgery - Internal/external fusion of lower back Social History Information Source: Patient Smoking Status: Current Every Day Smoker Cigarettes Packs Per Day: 0.5 Last Time Smoked: 01/05/18 Frequency of Alcohol Use: None Hx Recreational Drug Use: Yes Drugs: Marijuana Hx Prescription Drug Abuse: Yes - Advance Directive Resuscitation Status: Full Code Surrogate healthcare decision maker:: Patient's daughter is the surrogate decision-maker Family History Family History: Hypertension Parental Family History Reviewed: Yes Children Family History Reviewed: Yes Sibling(s) Family History Reviewed.: Yes Medication/Allergy Home Medications: Alprazolam [Xanax 0.5 mg Tablet] 0.5 mg PO Q6 01/06/18 Asenapine Maleate [Saphris] 10 mg PO BID 01/06/18 Atorvastatin Calcium [Lipitor 40 mg Tablet] 40 mg PO QHS 01/06/18 Duloxetine HCl [Cymbalta] 60 mg PO DAILY 01/06/18 Fenofibrate Nanocrystallized [Tricor 48 mg Tablet] 48 mg PO DAILY 01/06/18 Gabapentin [Neurontin 400 mg Capsule] 800 mg PO Q6 01/06/18 Lisinopril [Prinivil 10 mg Tablet] 10 mg PO DAILY 01/06/18 Oxcarbazepine [Trileptal] 450 mg PO Q12 01/06/18 Tizanidine HCl [Zanaflex 4 mg Tablet] 8 mg PO TID 01/06/18 Trazodone HCl [Desyrel] 300 mg PO QHS 01/06/18 Allergies/Adverse Reactions: Penicillins Allergy (Severe, Verified 01/10/17 08:23) pregabalin [From Lyrica] Allergy (Severe, Verified 01/10/17 08:23) welts, edema Review of Systems Review of Systems: Please see history of present illness and past medical history as wall. Constitutional: No fever or chills reported. Head : No recent chronic headaches, recent head injury. Eyes: No recent eye pain, diplopia, redness, discharge, acute visual changes. Ears: No recent chronic ear pain, acute hearing loss, ear discharge. Oral cavity: No recent ulcerations, bleeding, oral cavity discomfort. Neck: No recent acute neck pain reported. Hematologic: No recent easy bruising or bleeding. Lymphatic: No recent lymph node enlargement reported. Cardiovascular system review: See history of present illness. Respiratory system review: No hemoptysis or blood clots in the lungs reported. Mild Shortness of breath on exertion Gastrointestinal system review: Negative for any recent acute hematemesis, melena. Genitourinary system review: No recent acute or chronic hematuria, flank pain, UTI etc. reported. Skin system review: Negative for any recent abnormal bruising, no rash, no pruritus reported. Neurologic: No prior history of strokes, mini strokes, questionable history of seizures and recurrent syncopal spell. Psychologic: No history of major psychosis or major depression reported. History of minor depression. Musculoskeletal: No acute joint swelling reported. History of chronic pain syndrome. Endocrine: No recent polyuria, polydipsia, recent heat or cold intolerance. Physical Exam Vital Signs: Temp Pulse Resp BP Pulse Ox 97.5 F 57 L 16 147/86 H 96 01/06/18 08:55 01/06/18 08:55 01/06/18 08:55 01/06/18 08:55 01/06/18 08:55 Exam: GENERAL: well-nourished and in no acute distress. Alert and oriented x3 HEAD: Normocephalic. Small sutured laceration noted over right eyebrow EYES: Pupils equal round and reactive to light, extraocular movements intact, sclera anicteric, conjunctiva are normal. ENT: TMs normal, nares patent, oropharynx clear without exudates. Moist mucous membranes. No oral ulcerations or bleeding gums noted NECK: supple without lymphadenopathy. Trachea is central. No cervical or axillary lymphadenopathy noted. Carotids are 2+, JVD WNL LUNGS: Respiration seems nonlabored, no significant accessory muscle action noted. Breath sounds clear to auscultation bilaterally and equal noted. No wheezes rales or rhonchi noted. No significant dullness noted on percussion. CHEST: Palpation of the chest wall shows no significant chest wall tenderness. 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 ABDOMEN: Soft, no significant tenderness appreciated, normoactive bowel sounds. No guarding, no rebound. No rigidity noted . No masses appreciated. EXTREMITIES: Pedal pulses are 1-2+, no calf tenderness noted. No clubbing or cyanosis. negative pedal edema noted NEUROLOGICAL: Focused neurological exam showed no significant neurologic deficit. Normal speech, no focal weakness appreciated. PSYCH: Normal mood, normal affect. Judgment and insight within normal limits. SKIN: No significant ecchymosis, skin is noted to be warm. MUSCULOSKELETAL EXAM: No significant acute joint swelling noted. Results EKG Comments: Sinus rhythm and is felt to be WNL. Impressions: Cervical Spine CT 01/06/18 00:42 IMPRESSION: 1. No acute fracture or subluxation of the cervical spine. This exam was performed according to our departmental dose-optimization program, which includes automated exposure control, adjustment of the mA and/or kV according to patient size and/or use of iterative reconstruction technique. Head CT 01/06/18 00:42 IMPRESSION: 1. No acute intracranial abnormality identified. This exam was performed according to our departmental dose-optimization program, which includes automated exposure control, adjustment of the mA and/or kV according to patient size and/or use of iterative reconstruction technique. Chest X-Ray 01/06/18 00:43 IMPRESSION: No acute cardiopulmonary findings. Assessment & Plan - Diagnosis (1) Syncope and collapse Is this a current diagnosis for this admission?: Yes (2) Tobacco abuse Is this a current diagnosis for this admission?: Yes (3) Marijuana abuse Is this a current diagnosis for this admission?: Yes (4) Headache Qualifiers: Headache type: unspecified Headache chronicity pattern: acute headache Intractability: not intractable Qualified Code(s): R51 - Headache Is this a current diagnosis for this admission?: Yes (5) Polypharmacy Is this a current diagnosis for this admission?: Yes (6) Hypertension Qualifiers: Hypertension type: essential hypertension Qualified Code(s): I10 - Essential (primary) hypertension Is this a current diagnosis for this admission?: Yes (7) Dyslipidemia Is this a current diagnosis for this admission?: Yes - Notes Notes: Syncope and collapse: Exact etiology not clear. It seems patient has been extensively evaluated as regards seizure as cause of syncope, although not completely ruled out, felt to be unlikely. Overall cause is undetermined at this time. There could be multiple differential diagnosis. This includes neurocardiogenic syncope and presyncope, cardiac arrhythmia in this patient's age group, hypotension secondary to orthostasis, seizure disorder, hypoglycemia et cetera. Both daniel and tachyarrhythmias are possible. Patient will benefit from cardiac monitoring during this admission. May need to consider outpatient cardiac monitoring using mobile cardiac site monitor if clinically indicated. Patient will benefit from cardiac evaluation, this could include 2D echo, prolonged cardiac event monitoring, implantable classroom monitor and tilt table testing. All this can be arranged through my office if needed. Hypertension: Currently under satisfactory control. Continue with Lisinopril. Dyslipidemia: Currently on atorvastatin therapy. Continue with it. Tobacco abuse: Patient advised in quitting smoking. Marijuana abuse: Patient would do better if she can come off it. Chronic headache: Patient is seeing a neurologist. Polypharmacy: This could be contributing to her symptoms and causing syncope. Patient advised to try to streamline her medications. CT of the neck was negative for any cervical cord stenosis which can sometimes cause falls. - Time Time Spent: 30 to 50 Minutes - CODE STATUS was discussed, patient remains full code. Multiple medical problems were addressed. More than 50% of the time spent coordinating care, discussing management plans with involved caregivers. Management plans discussed with involved personnels. Medical decision making was of moderate to high complexity, patient's has multiple comorbidities. Medications reviewed and adjusted accordingly: Yes
[2018-01-06] MEDS ORDERED: TRAZODONE HCL 50 MG TABLET PO SCH (22:00)
[2018-01-06] MEDS ORDERED: ATORVASTATIN CALCIUM 40 MG TABLET PO SCH (22:00)
[2018-01-07] MEDS: ALPRAZOLAM 0.5 MG TABLET PO PRN (03:48)
[2018-01-07] MEDS: GABAPENTIN 400 MG CAPSULE PO SCH (05:22)
[2018-01-07] MEDS: HEPARIN SOD (PORCINE) 5,000 UNIT/ML 1 ML SYRINGE SUBCUT SCH (05:23)
[2018-01-07] MEDS ORDERED: LISINOPRIL 10 MG TABLET PO SCH (10:00)
[2018-01-07] MEDS ORDERED: FENOFIBRATE NANOCRYSTALLIZED 48 MG TABLET PO SCH (10:00)
[2018-01-07] MEDS: OXCARBAZEPINE 150 MG TABLET PO SCH (10:29)
[2018-01-07] MEDS: DULOXETINE HCL 30 MG CAPSULE.DR PO SCH (10:30)
[2018-01-07 11:08] VITALS: BP 145/80
[2018-01-07] MEDS: ACETAMINOPHEN 325 MG TABLET PO PRN (12:20)
--- NOTE | 2018-01-07 14:58 | PDOC DISCHARGE SUMMARY ---
General - Admit/Disc Date/PCP Admission Date/Primary Care Provider: 01/06/18 05:14 ISAURO CAI MD Discharge Date: 01/07/18 - Discharge Diagnosis (1) Syncope and collapse Is this a current diagnosis for this admission?: Yes Summary: This patient has had multiple episodes of syncope and collapse over the past year or so. She is on multiple sedating medications and she smokes regular marijuana so this is potentially related to polypharmacy. Patient has had some workup for her syncope including ambulatory EEG. Carotid duplex is negative for significant stenosis. She has been seen by cardiology here in the hospital for this and intraventricular conduction delay. She will be followed by cardiology as an outpatient for probable ambulatory cardiac monitoring. Is no hard evidence for seizure activity though etiology of her syncope could still potentially be neurogenic versus cardiogenic versus a pharmacy versus other. He is hemodynamically stable, no adverse events during the hospitalization, discharged home with plans for close follow-up and return to medical care for any concerning symptoms. Have recommended that the patient not drive until she is cleared by cardiology and her primary care doctor. (2) Scalp laceration Is this a current diagnosis for this admission?: Yes Summary: Right eyebrow laceration secondary to fall. Patient will treat her pain with ibuprofen at home. She will keep the wound clean and dry. She is asked to see her primary care doctor within the next few days for close follow-up. CT scan of the head and CT scan of the neck did not show any acute concerning changes. She has no neurologic deficits after her fall. (3) Hypertension Is this a current diagnosis for this admission?: Yes Summary: Well-controlled on her antihypertensives, no changes were made to her home medication dosing. (4) Marijuana abuse Is this a current diagnosis for this admission?: Yes Summary: Is advised to discontinue marijuana use secondary to all of her other sedating medications and for the possibility that this could be contributing to syncope. (5) Polypharmacy Is this a current diagnosis for this admission?: Yes Summary: Please see above. In addition, I have recommended that the patient hold her Zanaflex until she can further discuss the safety or lack thereof in using this medication given her current situation. - Additional Information Resuscitation Status: Full Code Discharge Diet: As Tolerated, Cardiac Discharge Activity: Activity As Tolerated, No Driving, Other Home Medications: Alprazolam [Xanax 0.5 mg Tablet] 0.5 mg PO Q6 01/06/18 Asenapine Maleate [Saphris] 10 mg PO BID 01/06/18 Atorvastatin Calcium [Lipitor 40 mg Tablet] 40 mg PO QHS 01/06/18 Duloxetine HCl [Cymbalta] 60 mg PO DAILY 01/06/18 Fenofibrate Nanocrystallized [Tricor 48 mg Tablet] 48 mg PO DAILY 01/06/18 Gabapentin [Neurontin 400 mg Capsule] 800 mg PO Q6 01/06/18 Lisinopril [Prinivil 10 mg Tablet] 10 mg PO DAILY 01/06/18 Oxcarbazepine [Trileptal] 450 mg PO Q12 01/06/18 Tizanidine HCl [Zanaflex 4 mg Tablet] 8 mg PO TID 01/06/18 Trazodone HCl [Desyrel] 300 mg PO QHS 01/06/18 History of Present Illness History of Present Illness: MONY CRUZ is a 47 year old woman with a past medical history of chronic pain, depression, anxiety, substance and tobacco abuse. Patient presents after a fall with head strike to the wall resulting in 1 cm laceration to the right brow. This was preceded by complaints of dancing in her head and an empty feeling. She denied previous headache, palpitations, chest pain, shortness of breath nausea or vomiting. She has had several outpatient workups including ambulatory EEG which was -2 months ago. In the emergency room she is found to have a 1 cm laceration to the right brow, unchanged intraventricular conduction delay and odd affect. She denies recent change in medications or running out though also is at risk for polypharmacy [facility] [place].Harjeet Nunez, [facility]. Patient admits to several medications complicating her chief complaint in addition to regular marijuana use. Pharmacy reconciliation, database query and urine toxicology pending. Hospital Course Hospital Course: See problem list for hospital course Physical Exam Vital Signs: Temp Pulse Resp BP Pulse Ox 98.1 F 61 14 145/80 H 98 01/07/18 11:06 01/07/18 11:06 01/07/18 11:06 01/07/18 11:06 01/07/18 11:06 Intake & Output 01/06/18 01/07/18 01/08/18 06:59 06:59 06:59 Intake Total 1785 Output Total 3300 Balance -1515 Weight 62.6 kg General appearance: PRESENT: no acute distress, cooperative, well-developed, well-nourished Eye exam: PRESENT: EOMI. ABSENT: conjunctival injection, scleral icterus Mouth exam: PRESENT: moist, tongue midline Respiratory exam: PRESENT: clear to auscultation lj, unlabored. ABSENT: rales , rhonchi, wheezes Cardiovascular exam: PRESENT: RRR. ABSENT: diastolic murmur, systolic murmur Pulses: PRESENT: normal radial pulses GI/Abdominal exam: PRESENT: normal bowel sounds, soft. ABSENT: distended, firm , guarding, tenderness Rectal exam: PRESENT: deferred Gentrourinary exam: ABSENT: indwelling catheter Extremities exam: ABSENT: pedal edema Musculoskeletal exam: PRESENT: normal inspection Neurological exam: PRESENT: alert, awake, oriented to person, oriented to place , oriented to situation, CN II-XII grossly intact, other - Strength 5 out of 5 in all extremities, no focal neurologic deficit Psychiatric exam: PRESENT: appropriate affect. ABSENT: anxious Skin exam: PRESENT: dry, intact, warm Results Impressions: Carotid Doppler Study 01/06/18 00:00 IMPRESSION: NO HEMODYNAMICALLY SIGNIFICANT STENOSIS. Cervical Spine CT 01/06/18 00:42 IMPRESSION: 1. No acute fracture or subluxation of the cervical spine. This exam was performed according to our departmental dose-optimization program, which includes automated exposure control, adjustment of the mA and/or kV according to patient size and/or use of iterative reconstruction technique. Head CT 01/06/18 00:42 IMPRESSION: 1. No acute intracranial abnormality identified. This exam was performed according to our departmental dose-optimization program, which includes automated exposure control, adjustment of the mA and/or kV according to patient size and/or use of iterative reconstruction technique. Chest X-Ray 01/06/18 00:43 IMPRESSION: No acute cardiopulmonary findings. Qualifiers - * PATIENT BEING DISCHARGED WITH ANY OF THE FOLLOWING DIAGNOSIS: No
--- NOTE | 2018-01-07 16:07 | PDOC PROGRESS REPORT ---
Subjective Progress Note for:: 01/07/18 Subjective:: Patient seems to be doing better. Patient requesting discharge and feels like she is ready for discharge. Pt is denying any chest arm or neck discomfort. Patient denying any PND, orthopnea. Patient denied any sustained palpitations, dizziness, syncope, near syncope. Patient denying any fever chills. Patient denying any other significant discomfort. Patient is maintaining sinus rhythm. Review of systems: Rest review of systems negative. Medications: Medications have been reviewed. Reason For Visit: SYNCOPE, OPIATE BENZO USE AND SUBSTANCE ABUSE Physical Exam Vital Signs: Temp Pulse Resp BP Pulse Ox 98.1 F 61 14 145/80 H 98 01/07/18 11:06 01/07/18 11:06 01/07/18 11:06 01/07/18 11:06 01/07/18 11:06 Intake & Output 01/06/18 01/07/18 01/08/18 06:59 06:59 06:59 Intake Total 1785 Output Total 3300 Balance -1515 Weight 62.6 kg Exam: GENERAL: well-nourished and in no acute distress. Alert and oriented x3 HEAD: Atraumatic, normocephalic. EYES: Pupils equal round and reactive to light, extraocular movements intact, sclera anicteric, conjunctiva are normal. ENT: TMs normal, nares patent, oropharynx clear without exudates. Moist mucous membranes. No oral ulcerations or bleeding gums noted NECK: supple without lymphadenopathy. Trachea is central. No cervical or axillary lymphadenopathy noted. Carotids are 2+, JVD WNL LUNGS: Respiration seems nonlabored, no significant accessory muscle action noted. Breath sounds clear to auscultation bilaterally and equal noted. No wheezes rales or rhonchi noted. No significant dullness noted on percussion. CHEST: Palpation of the chest wall shows no significant chest wall tenderness. HEART: [place] [employer], No PSH, 1/6 TAY aortic area, 1/6 newsome systolic murmur mitral area, no rubs, no gallops. ABDOMEN: Soft, no significant tenderness appreciated, normoactive bowel sounds. No guarding, no rebound. No rigidity noted . No masses appreciated. EXTREMITIES: Pedal pulses are 1-2+, no calf tenderness noted. No clubbing or cyanosis. negative pedal edema noted NEUROLOGICAL: Focused neurological exam showed no significant neurologic deficit. Normal speech, no focal weakness appreciated. PSYCH: Normal mood, normal affect. Judgment and insight within normal limits. SKIN: No significant ecchymosis, skin is noted to be warm. MUSCULOSKELETAL EXAM: No significant acute joint swelling noted. Results EKG Comments: Telemetry shows sinus rhythm without any sustained tachycardia or bradycardia Impressions: Carotid Doppler Study 01/06/18 00:00 IMPRESSION: NO HEMODYNAMICALLY SIGNIFICANT STENOSIS. Cervical Spine CT 01/06/18 00:42 IMPRESSION: 1. No acute fracture or subluxation of the cervical spine. This exam was performed according to our departmental dose-optimization program, which includes automated exposure control, adjustment of the mA and/or kV according to patient size and/or use of iterative reconstruction technique. Head CT 01/06/18 00:42 IMPRESSION: 1. No acute intracranial abnormality identified. This exam was performed according to our departmental dose-optimization program, which includes automated exposure control, adjustment of the mA and/or kV according to patient size and/or use of iterative reconstruction technique. Chest X-Ray 01/06/18 00:43 IMPRESSION: No acute cardiopulmonary findings. Assessment & Plan - Diagnosis (1) Syncope and collapse Is this a current diagnosis for this admission?: Yes (2) Tobacco abuse Is this a current diagnosis for this admission?: Yes (3) Marijuana abuse Is this a current diagnosis for this admission?: Yes (4) Headache Qualifiers: Headache type: unspecified Headache chronicity pattern: acute headache Intractability: not intractable Qualified Code(s): R51 - Headache Is this a current diagnosis for this admission?: Yes (5) Polypharmacy Is this a current diagnosis for this admission?: Yes (6) Hypertension Qualifiers: Hypertension type: essential hypertension Qualified Code(s): I10 - Essential (primary) hypertension Is this a current diagnosis for this admission?: Yes (7) Dyslipidemia Is this a current diagnosis for this admission?: Yes - Notes Notes: Patient was seen on rounds. [place] ready for discharge. Patient strongly advised to undergo cardiac monitoring, 2D echocardiogram etc. Patient given my card Syncope and collapse: Exact etiology not clear. It seems patient has been extensively evaluated as regards seizure as cause of syncope, although not completely ruled out, felt to be unlikely. Overall cause is undetermined at this time. There could be multiple differential diagnosis. This includes neurocardiogenic syncope and presyncope, cardiac arrhythmia in this patient's age group, hypotension secondary to orthostasis, seizure disorder, hypoglycemia et cetera. Both daniel and tachyarrhythmias are possible. Patient will benefit from cardiac monitoring during this admission. May need to consider outpatient cardiac monitoring using mobile cardiac monitoring and evaluation advisor if clinically indicated. Patient will benefit from cardiac evaluation, this could include 2D echo, prolonged cardiac event monitoring, implantable monitor car operator and tilt table testing. All this can be arranged through my office if needed. Hypertension: Currently under satisfactory control. Continue with Lisinopril. Dyslipidemia: Currently on atorvastatin therapy. Continue with it. Tobacco abuse: Patient advised in quitting smoking. Marijuana abuse: Patient would do better if she can come off it. Chronic headache: Patient is seeing a neurologist. Polypharmacy: This could be contributing to her symptoms and causing syncope. Patient advised to try to streamline her medications. CT of the neck was negative for any cervical cord stenosis which can sometimes cause falls. - Time Time with patient: 15-25 minutes - More than 50% of the time spent coordinating care, discussing management plans with involved caregivers. Management plans discussed with involved personnels. Medical decision making was of moderate to high complexity, patient's has multiple comorbidities. Smoking Education Provided: Other Medications reviewed and adjusted accordingly: Yes
== END 2018-01-07 12:35 | disposition home or self-care (01) ==
LOC: ER 00:04 → EH 05:14 → INTOOBSV 05:14 → 5 06:42
PROVIDERS: ADMIT Internal Medicine; ATTEND Internal Medicine
DX: R55 Syncope and collapse (principal); S01.111A Laceration without foreign body of right eyelid and periocular area, initial encounter; W01.198A Fall on same level from slipping, tripping and stumbling with subsequent striking against other object, initial encounter; I10 Essential (primary) hypertension; F12.10 Cannabis abuse, uncomplicated; G89.29 Other chronic pain; R53.83 Other fatigue; F17.210 Nicotine dependence, cigarettes, uncomplicated; I45.89 Other specified conduction disorders; R51 Headache; E78.5 Hyperlipidemia, unspecified; F31.9 Bipolar disorder, unspecified; F41.1 Generalized anxiety disorder; Z79.899 Other long term (current) drug therapy; Z82.49 Family history of ischemic heart disease and other diseases of the circulatory system
CPT/HCPCS: 93005; 96376; 99285; 96361; 96374; 36415; 82553; 82550; 85025; 80053; 84484; 80307; 93880; 71045; 70450; 72125; 93010; G0378 ×3; A9270 ×14; J1644; J3010; J7030

== ENCOUNTER → 2018-02-27 | Outpatient (CLI) | payer MEDICARE, MEDICAID ==
--- NOTE | 2018-02-27 09:25 | RADIOLOGY REPORT (SQ) ---
EXAM DESCRIPTION: CHEST PA/LATERAL COMPLETED DATE/TIME: 02/27/2018 9:12 am REASON FOR STUDY: ABNORMAL WEIGHT LOSS R63.4 ABNORMAL WEIGHT LOSS COMPARISON: 2013. NUMBER OF VIEWS: Two view. TECHNIQUE: Frontal and lateral radiographic views of the chest acquired. LIMITATIONS: None. FINDINGS: LUNGS AND PLEURA: No opacities, masses or pneumothorax. No pleural effusion. Attenuated bl ood vessels and flattened summer-diaphragms. MEDIASTINUM AND HILAR STRUCTURES: No masses. No contour abnormalities. HEART AND VASCULAR STRUCTURES: Heart normal in size and contour. No evidence for failure. BONES: No acute findings. HARDWARE: None in the chest. OTHER: No other significant finding. IMPRESSION: COPD. NO ACUTE RADIOGRAPHIC FINDING IN THE CHEST. TECHNICAL DOCUMENTATION: JOB ID: [id number] [employer]- All Rights Reserved Reading location - IP/workstation name: [email or web address]
== END ==
LOC: OD 08:48
PROVIDERS: ATTEND Physician Assistant
DX: J44.9 Chronic obstructive pulmonary disease, unspecified (principal); R63.4 Abnormal weight loss
CPT/HCPCS: 71046

== ENCOUNTER → 2018-03-02 | Outpatient (CLI) | payer MEDICARE, MEDICAID ==
--- NOTE | 2018-03-02 10:21 | WOMENS IMAGING REPORT ---
EXAM DESCRIPTION: 3D SCREENING MAMMO BILAT COMPLETED DATE/TIME: 03/02/2018 9:02 am REASON FOR STUDY: ROUTINE SCREENING MAMMOGRAM Z12.31 Z12.31 ENCNTR SCREEN MAMMOGRAM FOR MALIGNANT N EOPLASM OF RAJEEV COMPARISON: 04/04/2013 TECHNIQUE: Standard craniocaudal and mediolateral oblique views of each breast recorded using digita l acquisition and breast tomosynthesis. LIMITATIONS: None. FINDINGS: No masses, calcifications or architectural distortion. No areas of suspicion. Read with the assistance of CAD. .[facility] - R2 Cenova Version 1.3 .[facility] - R2 Cenova Version 1.3 .[facility] - R2 Cenova Version 2.4 .[facility] [place] - R2 Cenova Version 2.4 .[facility] - R2 Hands And Dial Inspector Version 9.2 IMPRESSION: NORMAL MAMMOGRAM. BIRADS 1. BREAST DENSITY: c. The breasts are heterogeneously dense, which may obscure small masses. BIRAD: 1 NEGATIVE RECOMMENDATION: ROUTINE SCREENING Please continue yearly bilateral screening mammography/tomosynthesis in February 2019 COMMENT: The patient has been notified of the results by letter per MQSA requirements. Additional no tification policies are in place for contacting patient with suspicious or incomplete findings. Quality ID #[id number]: The [employer] recommends an annual screening mammogram for women aged 40 years or over. This facility utilizes a reminder system to ensure that all patients receive reminder letters, and/or direct phone calls for appointments. This includes reminders for routine scr eening mammograms, diagnostic mammograms, or other Breast Imaging Interventions when appropriate. Th is patient will be placed in the appropriate reminder system. The [employer] (ACR) has developed recommendations for screening MRI of the breast s in certain patient populations, to be used in conjunction with mammography. Breast MRI surveillanc e may be appropriate for women with more than 20% lifetime risk of developing breast cancer as deter mined by genetic testing, significant family history of the disease, or history of mantle radiation f or Hodgkins Disease. ACR Practice Guidelines 2008. DBT Technology DBT is a type of tomographic mammography. With conventional mammography, overlapping breast tissue ma y make lesions difficult to detect, even with good compression. DBT uses an x-ray tube that rotates a round the breast, taking images at different angles. These images are then combined to create thin sl ices of the breast that the radiologist can view as a 3D reconstruction. The Hologic unit can perform full-field digital mammograms (2D imaging); or DBT (3D imaging); or both, in a combination mode that quickly performs both the mammogram and the tomosynthesis scan while the breast is still compressed. PQRS 6045F: Fluoroscopic imaging is not utilized for breast tomosynthesis. TECHNICAL DOCUMENTATION: FINDING NUMBER: (1) ASSESSMENT: (1) JOB ID: [id number] [employer]- All Rights Reserved Reading location - IP/workstation name: [email or web address]
== END ==
LOC: WI 08:50
PROVIDERS: ATTEND Physician Assistant
DX: Z12.31 Encounter for screening mammogram for malignant neoplasm of breast (principal)
CPT/HCPCS: 77063; 77067

== ENCOUNTER 2018-11-07 22:25 | Emergency (ER) | payer MEDICAID, MEDICARE ==
--- NOTE | 2018-11-07 23:00 | ER Document Report ---
ED General - General Stated Complaint: SYNCOPE Time Seen by Provider: 11/07/18 22:42 Primary Care Provider: JOSEPH CABELLO PA-C [NURSE PRACTITIONER] - Follow up as needed Mode of Arrival: Medic Information source: Patient TRAVEL OUTSIDE OF THE [place] IN LAST 30 DAYS: No - HPI Notes: Patient is a 48-year-old female history of previous syncope and polysubstance use presents to the emergency department with report that she took her usual evening sleeping medication cocktail at 2100 and then an hour later she went to get up and staggered and fell backwards into the chair. There was no acute injury that occurred and this was witnessed by her daughter. The patient was somnolent and hypotensive on arrival of EMS with a blood pressure 80/40. She received 1500 cc of normal saline with a recovery of blood pressure to 105 systolic on arrival. The patient was slow to respond on questioning then would awaken and be more alert and appropriate. The patient denies any headache or head injury or neck pain. No numbness or paresthesia or focal unilateral weakness. No chest pain or difficulty breathing. No overdose on the patient's medications. She states she uses a pill information systems planner and this was a history corroborated by the patient's daughter who is at bedside. Patient's medications however include Klonopin, Remeron, Trileptal, Neurontin, Cymbalta, trazodone and robaxin. She is also on lisinopril and atorvastatin and reports a previous history of hypertension. She denies any significant weight loss. Patient has had previous syncope similar to this episode and has had previous head injury in the past that required suture repair. The patient has been admitted previously for the same. She has no history of hyponatremia. The patient has had a ambulatory EEG which was normal, carotid duplex ultrasound which was normal and cardiology evaluation which showed no significant finding besides a mild intraventricular conduction delay which is unchanged. - Related Data Allergies/Adverse Reactions: Penicillins Allergy (Severe, Verified 01/10/17 08:23) pregabalin [From Lyrica] Allergy (Severe, Verified 01/10/17 08:23) welts, edema Past Medical History - General Information source: Patient, Relative - Social History Smoking Status: Current Every Day Smoker Frequency of alcohol use: None Drug Abuse: Marijuana Lives with: Family Family History: Hypertension - Past Medical History Cardiac Medical History: Reports: Hx Hypercholesterolemia, Hx Hypertension Denies: Hx Coronary Artery Disease, Hx Heart Attack Pulmonary Medical History: Denies: Hx Asthma, Hx Bronchitis, Hx COPD, Hx Pneumonia Neurological Medical History: Denies: Hx Cerebrovascular Accident, Hx Seizures Renal/ Medical History: Denies: Hx Peritoneal Dialysis Musculoskeletal Medical History: Denies Hx Arthritis Psychiatric Medical History: Reports: Hx Bipolar Disorder, Hx Depression Past Surgical History: Reports: Hx Orthopedic Surgery - Internal/external fusion of lower back - Immunizations Hx Diphtheria, Pertussis, Tetanus Vaccination: Yes Review of Systems - Review of Systems -: Yes All other systems reviewed and negative Physical Exam - Vital signs Vitals: Pulse Ox 98 11/07/18 22:38 - Notes Notes: PHYSICAL EXAMINATION: GENERAL: Well-appearing, well-nourished and in no acute distress. HEAD: Atraumatic, normocephalic. EYES: Pupils equal round and reactive to light, extraocular movements intact, conjunctiva are normal. ENT: Nares patent, oropharynx clear without exudates. Moist mucous membranes. NECK: Normal range of motion, supple without lymphadenopathy. No gross carotid bruits. LUNGS: Breath sounds clear to auscultation bilaterally and equal. No wheezes rales or rhonchi. HEART: Regular rate and rhythm without murmurs ABDOMEN: Soft, nontender, nondistended abdomen. No guarding, no rebound. No masses appreciated. Female : deferred Musculoskeletal: Normal range of motion, no pitting or edema. No cyanosis. NEUROLOGICAL: Cranial nerves grossly intact. Normal sensory exam. No gross motor deficits noted on exam. The patient is slow to respond. When she is awakened however, she is alert and oriented x4 and interactive. When left alone she drifts off to sleep quickly and then is slow to respond again. PSYCH: Normal mood, normal affect. SKIN: Warm, Dry, normal turgor, no rashes or lesions noted. Course - Re-evaluation Re-evalutation: 11/08/18 03:54 I discussed at length with the patient and the family the need to cut back on the patient's sedating medications, which I think are largely responsible for her condition. Initial blood pressure was 80/40 per EMS and improved after rehydration. Patient was given additional IV fluids and rehydration and replacement potassium and magnesium. The patient awakened further and blood pressure normalized. The patient thereafter had normal orthostatics and was ambulatory and felt stable for discharge. Again, the patient denies overdose and I feel that her regular medication regimen is contributory to her family's description of her getting somnolent and falling in the evenings. No evidence for CVA or TIA. No evidence for cardiac arrhythmia. Most likely the hyponatremia is secondary to poor salt intake combined with mirtazapine which is known for hyponatremia. Patient is on a high dose of the mirtazapine, and this is a new medication. Previous review of history shows no prior hyponatremia. Urine sodium is normal, making SIADH syndrome less likely. Patient had a negative chest x-ray 8 months ago. - Vital Signs Vital signs: Temp Pulse Resp BP Pulse Ox 74 12 98/62 L 95 11/08/18 02:30 11/08/18 03:01 11/08/18 03:01 11/08/18 03:01 - Laboratory Result Diagrams: 11/07/18 20:50 11/07/18 20:50 Laboratory results interpreted by me: 11/07/18 11/07/18 11/07/18 20:50 20:50 20:50 RBC 3.34 L Hgb 10.9 L Hct 31.6 L Lymphocytes % 46.1 H Sodium 124.5 L Potassium 3.3 L Chloride 93 L Glucose 116 H Calcium 8.2 L Magnesium 1.5 L Total Protein 5.7 L - EKG Interpretation by Co EKG shows normal: Sinus rhythm Additional EKG results interpreted by me: 11/07/18 22:59 EKG is interpreted by mi showed sinus rhythm mild bradycardia heart rate of 58. There is no gross evidence for acute CT or ischemia noted. There is no significant changes compared to previous EKG reviewed from 01/06/2018. Discharge - Discharge Clinical Impression: Polysubstance (excluding opioids) dependence, Hyponatremia Hypotension Qualifiers: Hypotension type: unspecified hypotension type Qualified Code(s): I95.9 - Hypotension, unspecified Syncope Qualifiers: Syncope type: unspecified Qualified Code(s): R55 - Syncope and collapse Condition: Stable Disposition: HOME, SELF-CARE Instructions: Hyponatremia ([facility]), Hypotension ([facility]) Additional Instructions: Drink plenty of fluids. Add salt to your diet. Obtain a blood pressure cuff and check and record your blood pressures at home regularly. Stop taking lisinopril, as your blood pressure was 80/40. Stop mirtazapine, as it causes hyponatremia, and your sodium was 124.5. You need a repeat sodium level checked within the next 4 days. Talk with your doctor about cutting back on your sedating medications, as it is causing you to fall and possibly drop your blood pressure. Referrals: JOSEPH CABELLO PA-C [NURSE PRACTITIONER] - Follow up tomorrow
[2018-11-07 23:10] LABS: ABSOLUTE EOSINOPHILS # (AUTO) 0.1 10^3/uL (0.0-0.6); ABSOLUTE LYMPHOCYTES (AUTO) 4.1 10^3/uL (0.5-4.7); ABSOLUTE MONOCYTES (AUTO) 0.5 10^3/uL (0.1-1.4); ABSOLUTE NEUT (AUTO) 4.2 10^3/uL (1.7-8.2); BASOPHILS % (AUTO) 0.4 % (0-2); EOSINOPHILS % (AUTO) 0.7 % (0-6); HEMOGLOBIN 10.9 g/dL (12.0-15.5); MEAN CORPUSCULAR VOLUME 95 fl (80-97); TOTAL CELLS COUNTED % (AUTO) 100 %; WHITE BLOOD COUNT 8.9 10^3/uL (4.0-10.5)
[2018-11-07 23:17] LABS: HEMATOCRIT 31.6 % (36.0-47.0); LYMPHOCYTES % (AUTO) 46.1 % (13-45); MEAN CORPUSCULAR HEMOGLOBIN 32.7 pg (27.0-33.4); MEAN CORPUSCULAR HGB CONC 34.5 g/dL (32.0-36.0); MONOCYTES % (AUTO) 5.3 % (3-13); PLATELET COUNT 302 10^3/uL (150-450); RED BLOOD COUNT 3.34 10^6/uL (3.72-5.28); RED CELL DISTRIBUTION WIDTH 13.4 % (11.5-14.0); SEGMENTED NEUTROPHILS % (AUTO) 47.5 % (42-78)
[2018-11-07 23:28] LABS: ALBUMIN 3.6 g/dL (3.5-5.0); ALKALINE PHOSPHATASE 47 U/L (38-126); ASPARTATE AMINO TRANSFERASE 21 U/L (14-36); BILIRUBIN,DIRECT 0.3 mg/dL (0.0-0.4); BILIRUBIN,TOTAL 0.3 mg/dL (0.2-1.3); BLOOD UREA NITROGEN 14 mg/dL (7-20); CALCIUM 8.2 mg/dL (8.4-10.2); CARBON DIOXIDE 26 mmol/L (22-30); CREATINE KINASE 54 U/L (30-135); GLUCOSE 116 mg/dL (75-110); POTASSIUM 3.3 mmol/L (3.6-5.0); TOTAL PROTEIN 5.7 g/dL (6.3-8.2)
[2018-11-07 23:29] LABS: ALCOHOL < 10 mg/dL (NONE DETECTED)
[2018-11-07 23:33] LABS: ANION GAP 6 (5-19); CHLORIDE 93 mmol/L (98-107)
[2018-11-07 23:39] LABS: CREATINE KINASE MB 0.34 ng/mL (<4.55)
[2018-11-07 23:43] LABS: TROPONIN I < 0.012 ng/mL
[2018-11-08] MEDS ORDERED: NORMAL SALINE 1000 ML 1,000 ML IV ONE (00:26)
[2018-11-08] MEDS ORDERED: POTASSI CL 20 MEQ/1/2NS 1L 20 MEQ/1,000 ML RTUINJ IV ONE (00:26)
[2018-11-08] MEDS ORDERED: MAGNESIUM OXIDE 400 MG TABLET PO ONE (01:11)
[2018-11-08] MEDS ORDERED: POTASSIUM CHLORIDE 10 MEQ CAPSULE.ER PO ONE (01:11)
[2018-11-08 02:30] LABS: APPEARANCE,URINE CLEAR; BILIRUBIN,URINE NEGATIVE (NEGATIVE); COLOR,URINE YELLOW; GLUCOSE, URINE NEGATIVE (NEGATIVE); KETONES,URINE NEGATIVE (NEGATIVE); LEUKOCYTE ESTERASE,URINE NEGATIVE (NEGATIVE); NITRITE,URINE NEGATIVE (NEGATIVE); PROTEIN,URINE NEGATIVE (NEGATIVE); URINE SPECIFIC GRAVITY 1.008; UROBILINOGEN,URINE NEGATIVE mg/dL (<2.0)
[2018-11-08 04:17] VITALS: BP 130/84
[2018-11-08 04:21] LABS: URINE AMPHETAMINES SCREEN NEGATIVE; URINE BARBITURATES SCREEN NEGATIVE; URINE BENZODIAZEPINES SCREEN NEGATIVE; URINE COCAINE SCREEN NEGATIVE; URINE MARIJUANA (THC) SCREEN UNCONFIRMED POSITIVE; URINE METHADONE SCREEN NEGATIVE; URINE PHENCYCLIDINE SCREEN NEGATIVE
--- NOTE | 2018-11-08 10:58 | EKG REPORT ---
SEVERITY:- ABNORMAL ECG - SINUS RHYTHM PROBABLE LEFT ATRIAL ABNORMALITY NONSPECIFIC INTRAVENTRICULAR CONDUCTION DELAY : Confirmed by: Christine Warren 08-Nov-2018 10:57:31
== END 2018-11-08 04:16 | disposition home or self-care (01) ==
LOC: ER 22:25
DX: R55 Syncope and collapse (principal); E87.1 Hypo-osmolality and hyponatremia; I95.9 Hypotension, unspecified; F19.20 Other psychoactive substance dependence, uncomplicated; F17.200 Nicotine dependence, unspecified, uncomplicated; I10 Essential (primary) hypertension; E78.00 Pure hypercholesterolemia, unspecified; Z88.0 Allergy status to penicillin; Z98.1 Arthrodesis status
CPT/HCPCS: 93005; 99284; 96360; 96361; 36415; 82553; 80307 ×2; 82550; 83735; 84300; 85025; 80053; 81001; 84484; 93010; A9270 ×2; J3480; J7030

== ENCOUNTER → 2019-11-22 | Outpatient (CLI) | payer MEDICAID, MEDICARE ==
--- NOTE | 2019-11-23 10:44 | RADIOLOGY REPORT (SQ) ---
EXAM DESCRIPTION: MRI LUMBAR SPINE COMBO IMAGES COMPLETED DATE/TIME: 11/22/2019 1:10 pm REASON FOR STUDY: M54.16 RADICULOPATHY, LUMBAR REGION M54.16 RADICULOPATHY, LUMBAR REGION COMPARISON: None. TECHNIQUE: Sagittal and Axial imaging includes T1, T1 post gadolinium, T2, STIR and gradient echo se quences. Coronal T2/HASTE imaging. CONTRAST TYPE AND DOSE: 20 mL Prohance. RENAL FUNCTION: Not indicated. ACR Type II contrast agent associated with few, if any, unconfounded cases of NSF LIMITATIONS: None. FINDINGS: VISUALIZED UPPER ABDOMEN: Unremarkable SEGMENTATION: No transitional anatomy. The lowest well-developed disc space is labeled L5-S1. ALIGNMENT: Anatomic. VERTEBRAE: Intact. No fractures. BONE MARROW: Normal. No marrow replacement or reactive changes. DISC SIGNAL: Post fusion at L4-5 and L5-S1 with space prosthesis POSTERIOR ELEMENTS: Bilateral laminectomies at L4 and L5 HARDWARE: Transpedicular screws and dorsal fixation plates from L4 through S1 CORD AND CONUS: Normal in size and signal intensity. Conus at the T12-L1 level. SOFT TISSUES: No aortic aneurysm seen. No bulky retroperitoneal adenopathy or mass. No paraspinal mas s or fluid. T11-12: At the upper edge of the field of view. No central or foraminal stenosis. T12-L1: No central or foraminal stenosis L1-L2: No central or foraminal stenosis L2-L3: No central or foraminal stenosis. Mild bilateral facet hypertrophy. L3-L4: Mild posterior disc bulging, moderate bilateral facet hypertrophy. No significant central or foraminal stenosis L4-L5: Post bilateral laminectomy with fusion hardware. No central or foraminal stenosis. No abnorm al nerve root enhancement. L5-S1: Post bilateral laminectomy with fusion hardware. No central or foraminal stenosis. No abnorm al nerve root enhancement. SACRUM: Visualized upper sacrum intact. ENHANCEMENT: No abnormal nerve root enhancement. OTHER: No other significant findings. IMPRESSION: Post lower lumbar discectomy and fusion. No significant central or foraminal stenosis. TECHNICAL DOCUMENTATION: JOB ID: [id number] 2010 [employer]- All Rights Reserved Reading location - IP/workstation name: [email or web address]
== END ==
LOC: RAD 11:52
PROVIDERS: ATTEND Anesthesiology Pain Medicine
DX: M54.16 Radiculopathy, lumbar region (principal)
CPT/HCPCS: 82565; 72158; A9576